=== PATIENT | female | born 1945 | race Asian ===

== ENCOUNTER 2019-11-22 07:43 | Emergency (ER) | payer BC ==
[~2019-11-22] VITALS: Ht 149.9 cm; Wt 60.9 kg
[~2019-11-22 07:43] MED LIST: ATOR20TA PO; CARV3.12 PO; CHOL100013 PO; CYAN-25 PO; DIPH25CA58 PO; LOSA50TA86 PO; METF10007 PO; OMEG-33 PO; SPIR25TA5 PO; WARF2.5T83 PO
--- NOTE | 2019-11-22 07:57 | PHYS DOC ---
Past History Past Medical History: A-Fib, Diabetes, Hypertension Past Surgical History: Other Alcohol Use: None Drug Use: None General Adult EDM: Chief Complaint: WEAKNESS/GENERALIZED HPI: HPI: 73-year-old female presents with decreased lower extremity coordination. The patient was feeling fine yesterday. 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 She is able to move all of her extremities, she just does not feel like she can make her legs move the way she wants to. She can bear weight. She can shuffle, but does not believe she can walk. This is new for her. The patient is on Coumadin for atrial fibrillation. Her most recent INR showed her to be slightly subtherapeutic at 1.9. She is having no difficulty speaking or understanding words. She does not have any drift. She denies fever or chills. Review of Systems: Review of Systems: Constitutional: Denies fever or chills Eyes: Denies change in visual acuity HENT: Denies nasal congestion or sore throat Respiratory: Denies cough or shortness of breath Cardiovascular: Denies chest pain or edema GI: Denies abdominal pain, nausea, vomiting, bloody stools or diarrhea : Denies dysuria Musculoskeletal: Denies back pain or joint pain Integument: Denies rash Neurologic: Denies headache or sensory changes. Decreased coordination lower extremities Endocrine: Denies polyuria or polydipsia Lymphatic: Denies swollen glands Psychiatric: Denies depression or anxiety Heart Score: Risk Factors: Risk Factors: DM, Current or recent (<one month) smoker, HTN, HLP, family history of CAD, obesity. Risk Scores: Score 0 - 3: 2.5% MACE over next 6 weeks - Discharge Home Score 4 - 6: 20.3% MACE over next 6 weeks - Admit for Clinical Observation Score 7 - 10: 72.7% MACE over next 6 weeks - Early Invasive Strategies Allergies: Allergies: Allergies Coded Allergies Type Severity Reaction Last Updated Verified DIAMOND Inhibitors Allergy Unknown 01/07/15 Yes epinephrine Allergy Unknown 01/07/15 Yes Physical Exam: PE: Constitutional: Well developed, well nourished, no acute distress, non-toxic appearance. [] HENT: Normocephalic, atraumatic, bilateral external ears normal, oropharynx moist, no oral exudates, nose normal. [] Eyes: PERRLA, EOMI, conjunctiva normal, no discharge. [] Neck: Normal range of motion, no tenderness, supple, no stridor. [] Cardiovascular: Heart rate regular rhythm, no murmur [] Lungs & Thorax: Bilateral breath sounds clear to auscultation [] Abdomen: Bowel sounds normal, soft, no tenderness, no masses, no pulsatile mas ses. [] Skin: Warm, dry, no erythema, no rash. [] Back: No tenderness, no CVA tenderness. [] Extremities: No tenderness, no cyanosis, no clubbing, ROM intact, no edema. [] Neurologic: Alert and oriented X 3, normal motor function, normal sensory function, no focal deficits noted. [] Psychologic: Affect normal, judgement normal, mood anxious. [] EKG: EKG: Irregular rhythm, no P waves, rate 98, no ST elevations or depressions. Atrial fibrillation. [] Radiology/Procedures: Radiology/Procedures: [] Impressions: CT HEAD WO CONTRAST History: Decreased coordination of lower extremities. Comparison: None. Technique: Noncontrast CT imaging was performed of the head. Exposure: One or more of the following individualized dose reduction techniques were utilized for this examination: 1. Automated exposure control 2. Adjustment of the mA and/or kV according to patient size 3. Use of iterative reconstruction technique. Findings: No intracranial hemorrhage. No mass effect. No hydrocephalus. Mild brain parenchymal volume loss. Mild foci of decreased attenuation within the hemispheric white matter, most often due to chronic microvascular ischemia. Imaged orbits are unremarkable. Imaged paranasal sinuses and mastoid air cells are clear. No acute calvarial fracture. Impression: 1. No acute intracranial abnormality. Electronically signed by: Pete Esapna DO (11/22/2019 8:42 AM) [id number] DICTATED AND SIGNED BY: PETE ESPANA DO DATE: 11/22/19 0842 CC: ALEC DICKSON DO; TIKA SMITH MD ~ Course & Med Decision Making: Course & Med Decision Making Pertinent Labs and Imaging studies reviewed. (See chart for details) The patient's head CT is negative. Her labs are unremarkable except for a subtherapeutic INR of 1.7. The patient will follow up on this with her physician. Her official NIH scale is 2. For slight drift in her left leg and decreased coordination with this leg. The patient tells me she is feeling better overall. She had heaviness and decreased movement of her entire left side last night. The left arm is significantly improved. She does not want to be admitted to the hospital. She will follow-up with the neurologist, Dr. Olivares. She will call him today. She is stable for discharge at this time. [] Dragon Disclaimer: Dragon Disclaimer: This electronic medical record was generated, in whole or in part, using a voice recognition dictation system. NIH Stroke Scale: NIH Stroke Scale Response (Comments) Value Level of Consciousness: 0 Alert/Responsive 0 LOC Questions: 0 Answers both correctly 0 LOC Commands: 0 Performs both tasks 0 Best Gaze: 0 Normal 0 Facial Palsy: 0 Normal, symmetrical 0 Motor - Left Arm 0 No drift 0 Motor - Right Arm 0 No drift 0 Motor - Left Leg 1 Drift but can hold 1 Motor: Right Leg 0 No drift 0 Limb Ataxia: 1 One limb 1 Best Language: 0 Normal 0 Dysathria: 0 Normal 0 Extinction and Inattention: 0 Normal 0 Total 2 Departure Departure: Impression: Primary Impression: Weakness of left lower extremity Additional Impression: TIA (transient ischemic attack) Disposition: 01 HOME, SELF-CARE Condition: STABLE Referrals: MEL RIVERA MD (PCP) Patient Instructions: Transient Ischemic Attack, [id number] ALEC DICKSON DO Nov 22, 2019 07:56
[2019-11-22 08:34] LABS: CALCIUM 8.7 mg/dL (8.5-10.1); CREATININE 0.9 mg/dL (0.6-1.0); GFR 61.2; POTASSIUM 4.6 mmol/L (3.5-5.1)
[2019-11-22 08:37] LABS: BASO # 0.1 x10^3/uL (0.0-0.2); BASO % 1 % (0-3); EOS # 0.1 x10^3/uL (0.0-0.7); EOS % 2 % (0-3); HEMATOCRIT 42.3 % (36.0-47.0); HEMOGLOBIN 13.9 g/dL (12.0-15.5); LYMPH # 1.4 x10^3/uL (1.0-4.8); LYMPH % 21 % (24-48); MEAN CORPUSCULAR HEMOGLOBIN 30 pg (25-35); MEAN CORPUSCULAR HGB CONC 33 g/dL (31-37); MEAN CORPUSCULAR VOLUME 90 fL (79-100); MONO # 0.5 x10^3/uL (0.0-1.1); MONO % 7 % (0-9); NEUT # 4.4 x10^3uL (1.8-7.7); NEUT % 69 % (31-73); PLATELET COUNT 270 x10^3/uL (140-400); RED CELL DISTRIBUTION WIDTH 15.6 % (11.5-14.5); WHITE BLOOD COUNT 6.3 x10^3/uL (4.0-11.0)
[2019-11-22 08:40] LABS: ALBUMIN 3.4 g/dL (3.4-5.0); ALBUMIN/GLOBULIN RATIO 0.8 (1.0-1.7); MAGNESIUM 1.9 mg/dL (1.8-2.4); TOTAL BILIRUBIN 0.6 mg/dL (0.2-1.0); TOTAL PROTEIN 7.6 g/dL (6.4-8.2)
--- NOTE | 2019-11-22 08:45 | RAD ---
CT HEAD WO CONTRAST History: Decreased coordination of lower extremities. Comparison: None. Technique: Noncontrast CT imaging was performed of the head. Exposure: One or more of the following individualized dose reduction techniques were utilized for this examination: 1. Automated exposure control 2. Adjustment of the mA and/or kV according to patient size 3. Use of iterative reconstruction technique. Findings: No intracranial hemorrhage. No mass effect. No hydrocephalus. Mild brain parenchymal volume loss. Mild foci of decreased attenuation within the hemispheric white matter, most often due to chronic microvascular ischemia. Imaged orbits are unremarkable. Imaged paranasal sinuses and mastoid air cells are clear. No acute calvarial fracture. Impression: 1. No acute intracranial abnormality. Electronically signed by: Pete Espana DO (11/22/2019 8:42 AM) [id number]
[2019-11-22 09:44] LABS: CLARITY,URINE CLEAR; COLOR,URINE YELLOW
[2019-11-22 09:45] LABS: AMORPHOUS SEDIMENT,UR PRESENT /HPF; BACTERIA,URINE 0 /HPF (0-FEW); BILIRUBIN,URINE NEG (NEG); GLUCOSE,URINE NEG (NEG); NITRITE,URINE NEG (NEG); RBC,URINE 0 /HPF (0-2); SQUAMOUS EPITHELIAL CELL,UR FEW /LPF; UROBILINOGEN,URINE 0.2 mg/dL (0.2 mg/dL); WBC,URINE OCC /HPF (0-4)
[2019-11-22 09:53] VITALS: BP 136/80
--- NOTE | 2019-11-22 18:05 | EKG ---
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
== END 2019-11-22 10:00 | disposition home or self-care (01) ==
LOC: ER 07:43
DX: G45.9 Transient cerebral ischemic attack, unspecified (principal); R53.1 Weakness; E11.9 Type 2 diabetes mellitus without complications; I10 Essential (primary) hypertension; I48.91 Unspecified atrial fibrillation; Z79.01 Long term (current) use of anticoagulants; Z88.8 Allergy status to other drugs, medicaments and biological substances
CPT/HCPCS: 36415; 70450; 80053; 81001; 83735; 84484; 85025; 85610; 85730; 87086; 93005; 99285

== ENCOUNTER 2021-02-28 06:32 | Inpatient (IN) | payer MEDICARE, BC ==
[~2021-02-28] VITALS: Ht 149.9 cm; Wt 60.6 kg
[~2021-02-28 06:32] MED LIST changes: +WARF2.5T2 PO; -WARF2.5T83 PO
--- NOTE | 2021-02-28 06:55 | PHYS DOC ---
Past History Past Medical History: A-Fib, Diabetes, Hypertension Past Surgical History: Other Additional Past Surgical Histo: thyroidectomy Alcohol Use: None Drug Use: None General Adult EDM: Chief Complaint: chest pain HPI: HPI: 75-year-old female presents with chest pain. Patient woke up around 5 AM with a feeling of dread and a central chest burning that she rates an 8 out of 10 at this time. 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 She was initially concerned that she was having another stroke as she had 1 about a year ago. She denies having any focal deficits. The chest pain increased so she came to the emergency room. She had a cough last night it took Robitussin with codeine. She was able to sleep well overnight. She has been vaccinated for COVID-19. She has been having difficulty regulating her INR level lately. She is on Coumadin because of her A. fib. She also tells me she has had some issues regulating her blood pressure. She denies fever or chills. Review of Systems: Review of Systems: Constitutional: Denies fever or chills Eyes: Denies change in visual acuity HENT: Denies nasal congestion or sore throat Respiratory: Cough without shortness of breath Cardiovascular: Chest pain GI: Denies abdominal pain, nausea, vomiting, bloody stools or diarrhea : Denies dysuria Musculoskeletal: Denies back pain or joint pain Integument: Bruising Neurologic: Denies headache, focal weakness or sensory changes Endocrine: Denies polyuria or polydipsia Lymphatic: Denies swollen glands Psychiatric: Denies depression or anxiety Allergies: Allergies: Allergies Coded Allergies Type Severity Reaction Last Updated Verified DIAMOND Inhibitors Allergy Unknown 11/22/19 Yes epinephrine Allergy Unknown 11/22/19 Yes zolpidem Allergy Unknown 11/22/19 Yes Uncoded Allergies Type Severity Reaction Last Updated Verified cardiac stemulants Allergy Unknown 11/22/19 Physical Exam: PE: Constitutional: Well developed, well nourished, no acute distress, non-toxic appearance. [] HENT: Normocephalic, atraumatic, bilateral external ears normal, oropharynx moist, no oral exudates, nose normal. [] Eyes: PERRLA, EOMI, conjunctiva normal, no discharge. [] Neck: Normal range of motion, no tenderness, supple, no stridor. [] Cardiovascular: Heart rate 109, irregular rhythm, no murmur [] Lungs & Thorax: Bilateral breath sounds clear to auscultation [] Abdomen: Bowel sounds normal, soft, no tenderness, no masses, no pulsatile masses. [] Skin: Various areas of ecchymosis [] Back: No tenderness, no CVA tenderness. [] Extremities: No tenderness, no cyanosis, no clubbing, ROM intact, no edema. [] Neurologic: Alert and oriented X 3, normal motor function, normal sensory function, no focal deficits noted. [] Psychologic: Affect normal, judgement normal, mood normal. [] EKG: EKG: Irregular rhythm, rate 109, normal axis, no ST elevation or depression. [] Radiology/Procedures: Radiology/Procedures: [] Impressions: XR CHEST 1V INDICATION: cp COMPARISON STUDY: 09/21/2011. FINDINGS: Lungs: Normal lung volume. No pulmonary mass or consolidation. The tracheobronchial tree and hilar structures are normal. Pleura: No pleural effusion or pneumothorax. Heart and Mediastinum: Cardiomegaly. Atherosclerosis of the thoracic aorta. IMPRESSION: No consolidation. Electronically signed by: Nicky Stout MD (02/28/2021 6:54 AM) [facility] DICTATED AND SIGNED BY: NICKY STOUT MD DATE: 02/28/21 0653 CC: ALEC DICKSON DO; TIKA SMITH MD ~MTH0 0 Heart Score: C/O Chest Pain: Yes HEART Score for Chest Pain: HEART Score for Chest Pain Response (Comments) Value History Moderately Suspicious 1 ECG Nonspecific Repolarizatio 1 Age > 65 2 Risk Factors 1 or 2 Risk Factors 1 Troponin < Normal Limit 0 Total 5 Risk Factors: Risk Factors: DM, Current or recent (<one month) smoker, HTN, HLP, family history of CAD, obesity. Risk Scores: Score 0 - 3: 2.5% MACE over next 6 weeks - Discharge Home Score 4 - 6: 20.3% MACE over next 6 weeks - Admit for Clinical Observation Score 7 - 10: 72.7% MACE over next 6 weeks - Early Invasive Strategies Course & Med Decision Making: Course & Med Decision Making Pertinent Labs and Imaging studies reviewed. (See chart for details) The patient's EKG is unremarkable. Her chest x-ray is negative for acute findings. Her troponin is negative. Her other labs are essentially noncontributory. Her INR is 2.4. Given her age and risk factors, I believe it would be prudent to admit her to the hospital. The patient is in agreement. I spoke with Dr. Dobson and he has accepted the patient for admission. [] Dragon Disclaimer: Dragon Disclaimer: This electronic medical record was generated, in whole or in part, using a voice recognition dictation system. Departure Departure: Impression: Primary Impression: Chest pain Qualified Codes: R07.9 - Chest pain, unspecified Disposition: 09 ADMITTED INPATIENT Admitting Physician: Holden Dobson Condition: STABLE Referrals: TIKA SMITH MD (PCP) ALEC DICKSON DO Feb 28, 2021 06:54
--- NOTE | 2021-02-28 06:57 | RAD ---
XR CHEST 1V INDICATION: cp COMPARISON STUDY: 09/21/2011. FINDINGS: Lungs: Normal lung volume. No pulmonary mass or consolidation. The tracheobronchial tree and hilar st ructures are normal. Pleura: No pleural effusion or pneumothorax. Heart and Mediastinum: Cardiomegaly. Atherosclerosis of the thoracic aorta. IMPRESSION: No consolidation. Electronically signed by: Alli Stout MD (02/28/2021 6:54 AM) [facility]ITALJose Daniel
[2021-02-28] MEDS ORDERED: ASPIRIN CHEWABLE 81 MG TABLET. PO ONE (07:15)
--- NOTE | 2021-02-28 07:26 | EKG ---
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
[2021-02-28 07:33] LABS: BASO % 1 % (0-3); EOS # 0.1 x10^3/uL (0.0-0.7); EOS % 1 % (0-3); HEMATOCRIT 38.7 % (36.0-47.0); HEMOGLOBIN 12.8 g/dL (12.0-15.5); LYMPH # 1.1 x10^3/uL (1.0-4.8); LYMPH % 13 % (24-48); MEAN CORPUSCULAR HEMOGLOBIN 31 pg (25-35); MEAN CORPUSCULAR HGB CONC 33 g/dL (31-37); MEAN CORPUSCULAR VOLUME 93 fL (79-100); MONO # 0.3 x10^3/uL (0.0-1.1); MONO % 4 % (0-9); NEUT # 7.1 x10^3uL (1.8-7.7); NEUT % 83 % (31-73); PLATELET COUNT 242 x10^3/uL (140-400); RED BLOOD COUNT 4.18 x10^6/uL (3.50-5.40); RED CELL DISTRIBUTION WIDTH 15.1 % (11.5-14.5); WHITE BLOOD COUNT 8.6 x10^3/uL (4.0-11.0)
[2021-02-28 07:40] LABS: CALCIUM 8.4 mg/dL (8.5-10.1); CREATININE 0.8 mg/dL (0.6-1.0); GFR 69.7; POTASSIUM 4.2 mmol/L (3.5-5.1)
[2021-02-28 07:45] LABS: ALBUMIN 3.6 g/dL (3.4-5.0); ALBUMIN/GLOBULIN RATIO 0.9 (1.0-1.7); TOTAL BILIRUBIN 0.7 mg/dL (0.2-1.0); TOTAL PROTEIN 7.4 g/dL (6.4-8.2)
[2021-02-28] MEDS ORDERED: ONDANSETRON PF 4 MG/2 ML VIAL. IVP ONE (07:45)
[2021-02-28] MEDS ORDERED: ACETAMINOPHEN 325 MG TABLET PO ONE ×2 (07:45→07:49)
[2021-02-28] MEDS ORDERED: ONDANSETRON PF 4 MG/2 ML VIAL. ONE (07:49)
--- NOTE | 2021-02-28 08:26 | EKG ---
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
[2021-02-28] MEDS ORDERED: ONDANSETRON PF 4 MG/2 ML VIAL. IVP PRN (08:45)
[2021-02-28 09:43] VITALS: BP 124/72
--- NOTE | 2021-02-28 09:59 | NUR ---
The patient, SARAH WADSWORTH, 75 y/o, F admitted by SALEEM FIELDS MD, was given written information regarding hospital policies, unit procedures and contact persons. Valuables were checked and VS taken please see chart.
[2021-02-28] MEDS ORDERED: WARF1TAB69 PO (10:22)
[2021-02-28] MEDS ORDERED: MULT-697 PO (10:22)
[2021-02-28] MEDS ORDERED: ASPI-630 PO (10:22)
[2021-02-28] MEDS ORDERED: LEVO88TA2 PO (10:22)
--- NOTE | 2021-02-28 15:05 | NUR ---
Discharge Note: SARAH WADSWORTH [address] Discharge instructions and discharge home medications reviewed with Patient and a copy given. All questions have been answered and understanding verbalized. The following instructions and handouts were given: Discontinued lines and drains: Peripheral IV intact. Patient discharged to Home or Self Care with Self via Wheelchair
--- NOTE | 2021-02-28 16:11 | SSS ---
ADMIT DATE: 02/28/2021 HISTORY OF PRESENT ILLNESS: The patient is a 75-year-old Salvad[place] Mac[place] female patient who came to the Emergency Room complaining of chest pain. She apparently woke up around 5:00 a.m. with a feeling of dread and the central chest burning that she rates as 8/10 in severity. 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 She was initially concerned that she was having another stroke. She had one about a year ago. She denies having any focal deficit. The chest pain increased, so she came to the Emergency Room. She had the cough last night for which she took Robitussin with Codeine. She was able to sleep well overnight. She has been vaccinated for COVID-19. She has been having difficulty regulating her INR level lately. She is on Coumadin because of her AFib. She also tells me that she has issue with blood pressure. She stated that she had actually sprayed insecticides in her uma garden and has since had this feeling dizzy, nauseous and vomited. She was extensively investigated in the Emergency Room, and her first set of cardiac enzyme was less than 0.017. She was admitted to do more cardiac enzyme and to consult the quality control lab tech; however, the patient is extremely anxious and once she has the second enzyme become negative, she insisted that she wants to go home. She said she has 3 cardiologists already and does not want to have another fourth one. She follows with Dr. Thompson and she will make an appointment to see him. PAST MEDICAL HISTORY: Significant for atrial fibrillation, hypertension, type 2 diabetes mellitus, hyperlipidemia, hypothyroidism. 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 PAST SURGICAL HISTORY: Significant for thyroidectomy, hemorrhoidectomy, parathyroidectomy, total abdominal hysterectomy, bilateral salpingo-oophorectomy. ALLERGIES: SHE IS ALLERGIC TO DIAMOND INHIBITORS, CARDIAC STIMULANTS, EPINEPHRINE AND AMBIEN. MEDICATIONS: She is currently on warfarin 2.5 mg, she takes 1 tablet daily; warfarin 1 mg, take 1-1/2 tablet daily; atorvastatin calcium, she takes 40 mg daily; omega 3 fatty acids, she takes 3 capsules once a day; carvedilol 3.125 mg, she takes 25 mg twice a day; losartan potassium 50 mg twice a day; aspirin 81 mg once a day; metformin 1000 mg twice a day; levothyroxine 88 mcg once a day; multivitamin with folic acid once a day. FAMILY HISTORY: She has 3 sisters, 1 brother, all have diabetes and hypertension. Her father in his 70s because of hypertension and CVA. Mother at the age of 95 because of myocardial infarction. SOCIAL HISTORY: She is and lives with her . She has a son and daughter. She never smoked. Drinks alcohol occasionally. 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 REVIEW OF SYSTEMS: As per history of present illness. PHYSICAL EXAMINATION: GENERAL: When I examined her, she looked well and was clearly in no apparent respiratory distress. No pallor, jaundice, cyanosis or thyromegaly. No jugular venous distention. No limb edema. VITAL SIGNS: Her heart rate was 91, blood pressure was 124/72, temperature was 98.6, respiratory rate 20, and oxygen saturation was 97%. HEAD, EYES, EARS, NOSE, AND THROAT: Normocephalic, atraumatic. NECK: Supple. HEART: Showed normal first and second heart sounds. No gallop, rub or murmur. CHEST: Clear to auscultation. No crepitation or rhonchi. ABDOMEN: Slightly distended, soft, nontender. NEUROLOGIC: She was grossly intact. LABORATORY DATA: Her lab work showed a serum sodium 145, potassium 4.2, chloride 108, bicarbonate 26, anion gap of 11, BUN 31, creatinine 0.8. Estimated GFR was 69 mL per minute. Her glucose 150, calcium was 8.4. Total bilirubin, AST, ALT, alkaline phosphatase were normal. Her first troponin was 0.017. Total protein was 7.4, albumin was 3.6. Her prothrombin time was 24, INR of 2.4, APTT was 33. White cell count was 8600, hemoglobin 12.8, hematocrit 38, MCV 93 and platelet count 242,000. Her platelets are 242. The patient has 2 sets of cardiac enzymes that are negative. The patient insisted that she wanted to be seen by her quality control lab tech and wanted to go home as she remained stable, chest pain free and 2 cardiac enzymes were negative. The patient was discharged home to continue on aspirin 81 mg once a day, atorvastatin calcium 20 mg at bedtime, carvedilol 25 mg twice a day, levothyroxine sodium 88 mcg once a day, losartan potassium 50 mg twice a day, metformin 1000 mg once a day, multivitamin 1 tablet once a day, omega 3 fatty acid 1 capsule once a day and warfarin as per her regimen. FINAL DISCHARGE DIAGNOSES: Chest pain, myocardial infarction ruled out. She has obviously multiple risk factors for coronary artery disease; however, she has vomited multiple times and high possibility that this is all because of gastroesophageal reflux disease. BRUNO DR: Ingrid TID: [id number]
== END 2021-02-28 15:06 | disposition home or self-care (01) | DRG 392 ==
LOC: ER 06:32 → 1 SOUTH 09:07
PROVIDERS: ADMIT Internal Medicine; ATTEND Internal Medicine
DX: K21.9 Gastro-esophageal reflux disease without esophagitis (principal); E11.9 Type 2 diabetes mellitus without complications; E78.5 Hyperlipidemia, unspecified; E89.0 Postprocedural hypothyroidism; I10 Essential (primary) hypertension; I48.91 Unspecified atrial fibrillation; Z79.01 Long term (current) use of anticoagulants; Z82.3 Family history of stroke; Z82.49 Family history of ischemic heart disease and other diseases of the circulatory system; Z83.3 Family history of diabetes mellitus; Z86.73 Personal history of transient ischemic attack (TIA), and cerebral infarction without residual deficits; Z90.710 Acquired absence of both cervix and uterus; M19.90 Unspecified osteoarthritis, unspecified site; Z88.8 Allergy status to other drugs, medicaments and biological substances
CPT/HCPCS: 36415; 71045; 80053; 82947; 84484; 85025; 85610; 85730; 93005; 96374; J2405; 99285-25

== ENCOUNTER 2021-07-02 21:41 | Emergency (ER) | payer MEDICARE, BC ==
[~2021-07-02] VITALS: Ht 152.4 cm; Wt 68.2 kg
[~2021-07-02 21:41] MED LIST changes: +ASPI-630 PO; +LEVO88TA2 PO; +MULT-697 PO; +WARF1TAB69 PO
[2021-07-02] MEDS ORDERED: SUCCINYLCHOLINE 200 MG/10 ML VIAL. ONE ×2 (21:53→23:00)
[2021-07-02 22:41] LABS: BASO # 0.1 x10^3/uL (0.0-0.2); BASO % 1 % (0-3); EOS % 0 % (0-3); HEMATOCRIT 41.9 % (36.0-47.0); HEMOGLOBIN 13.3 g/dL (12.0-15.5); LYMPH # 3.2 x10^3/uL (1.0-4.8); LYMPH % 27 % (24-48); MEAN CORPUSCULAR HEMOGLOBIN 30 pg (25-35); MEAN CORPUSCULAR HGB CONC 32 g/dL (31-37); MEAN CORPUSCULAR VOLUME 95 fL (79-100); MONO # 0.4 x10^3/uL (0.0-1.1); MONO % 3 % (0-9); NEUT # 8.4 x10^3uL (1.8-7.7); NEUT % 69 % (31-73); PLATELET COUNT 262 x10^3/uL (140-400); RED BLOOD COUNT 4.43 x10^6/uL (3.50-5.40); RED CELL DISTRIBUTION WIDTH 14.3 % (11.5-14.5); WHITE BLOOD COUNT 12.2 x10^3/uL (4.0-11.0)
[2021-07-02 22:48] LABS: CALCIUM 8.1 mg/dL (8.5-10.1); CREATININE 1.1 mg/dL (0.6-1.0); GFR 48.3; POTASSIUM 4.3 mmol/L (3.5-5.1)
[2021-07-02 22:54] LABS: ALBUMIN 3.6 g/dL (3.4-5.0); ALBUMIN/GLOBULIN RATIO 0.9 (1.0-1.7); TOTAL BILIRUBIN 0.8 mg/dL (0.2-1.0); TOTAL PROTEIN 7.6 g/dL (6.4-8.2)
[2021-07-02] MEDS ORDERED: IV NORMAL SALINE 250 ML BAG ONE (23:00)
[2021-07-02] MEDS ORDERED: SODIUM BICARB ADULT 8.4% 50 MEQ/50 ML DISP.SYRIN. ONE (23:00)
[2021-07-02] MEDS ORDERED: EPINEPHrine SYRINGE 1 MG/10 ML SYRINGE ONE (23:00)
[2021-07-02] MEDS ORDERED: NOREPINEPHRINE BITARTRATE 4 MG/4 ML VIAL. IV ONE (23:00)
[2021-07-02] MEDS ORDERED: MIDAZOLAM HCL PF 5 MG/5 ML VIAL. ONE (23:00)
[2021-07-02] MEDS ORDERED: LIDOCAINE 2% SYRINGE 100 MG/5 ML DISP.SYRIN. ONE (23:00)
[2021-07-02] MEDS ORDERED: IV DEXTROSE 5% 250 ML BAG. IV ONE (23:00)
--- NOTE | 2021-07-02 23:37 | PHYS DOC ---
General Adult EDM: Chief Complaint: RESP ARREST HPI: HPI: "..She was in the bed .. and did not respond.. 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 Patient underwent CPR by paramedics when she became apneic, loss of pulse and unresponsive. Patient does have past medical history of A. fib and currently on Coumadin. Has had history of hypertension in the past.. 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 Patient did receive a Covid vaccination booster. No recent travel. No history of trauma. No specific ill contacts. Reportedly pt. was running a fever this afternoon. Patient in route did receive CPR compressions and received breahts by bag mask with a oral airway. Patient arrived and appeared to be exhibiting decorticate posturing. GCS= 5. Pt intubated with 7.5 ET to [protect airway and to send pt. to CT . OG induced to decompress stomach. The pt. did require fluits and levaphed to maintain blood pressure and MAP in normal range.. Was noted on intubation that patient had some aspiration of gastric contents. advised pt, had a history of Afib and was on Coumadin. Review of Systems: Review of Systems: Unable to completed due to Mental Status Family History: Family History: Not currently available Current Medications: Current Meds: Current Medications Medications (Trade) Dose Ordered Sig/Aisha Start Time Stop Time Status Last Admin Dose Admin Acetaminophen (Tylenol Supp) 1,300 mg 1X ONCE 07/02/21 23:45 07/02/21 23:46 Phytonadione (Vitamin K) 5 mg 1X ONCE 07/02/21 23:45 07/02/21 23:46 Succinylcholine Chloride (Anectine) 200 mg STK-MED ONCE 07/02/21 21:53 07/02/21 21:53 DC Vancomycin HCl 1 gm/Sodium Chloride 250 ml @ 250 mls/hr 1X ONCE 07/02/21 23:45 07/03/21 00:44 Allergies: Allergies: Allergies Coded Allergies Type Severity Reaction Last Updated Verified No Known Drug Allergies 07/02/21 No Physical Exam: PE: Constitutional: in acute distress, morbid in appearance. [] HENT: Normocephalic, atraumatic, bilateral external ears normal, oropharynx moist, no oral exudates, nose normal. No gag. Oral airway in place. Eyes: conjunctiva normal, no discharge. Eyes midline fixed and pupils dilated. Neck: No step-off palpated, no stridor. No bruits appreciated. Trachea midline. Cardiovascular:Tachycaridia Heart rate, irregular rhythm, no murmur [] Bed side monitor shows what appeared to be Afib. Lungs & Thorax: Bilateral breath sounds equal apex with rhonchi on right, basilar crackles on Lt base with auscultation [] Abdomen: Bowel sounds normal, soft, no tenderness, no masses, no pulsatile masses. [] Skin: Warm, dry, no erythema, no rash. Couple areas of bruising on right chest wall and abdomen. Back: No step-off noted, when patient was rolled to place pacer pads, Extremities: No cyanosis, no clubbing, no cording appreciated, no edema. [] Neurologic: Abnormal flexion motor movements, nonresponsive to noxious stimuli Psychologic: Unresponsive Current Patient Data: Labs: Laboratory Tests Test 07/02/21 21:45 07/02/21 21:55 White Blood Count 12.2 x10^3/uL (4.0-11.0) H Red Blood Count 4.43 x10^6/uL (3.50-5.40) Hemoglobin 13.3 g/dL (12.0-15.5) Hematocrit 41.9 % (36.0-47.0) Mean Corpuscular Volume 95 fL (79-100) Mean Corpuscular Hemoglobin 30 pg (25-35) Mean Corpuscular Hemoglobin Concent 32 g/dL (31-37) Red Cell Distribution Width 14.3 % (11.5-14.5) Platelet Count 262 x10^3/uL (140-400) Neutrophils (%) (Auto) 69 % (31-73) Lymphocytes (%) (Auto) 27 % (24-48) Monocytes (%) (Auto) 3 % (0-9) Eosinophils (%) (Auto) 0 % (0-3) Basophils (%) (Auto) 1 % (0-3) Neutrophils # (Auto) 8.4 x10^3uL (1.8-7.7) H Lymphocytes # (Auto) 3.2 x10^3/uL (1.0-4.8) Monocytes # (Auto) 0.4 x10^3/uL (0.0-1.1) Eosinophils # (Auto) 0.0 x10^3/uL (0.0-0.7) Basophils # (Auto) 0.1 x10^3/uL (0.0-0.2) Sodium Level 141 mmol/L (136-145) Potassium Level 4.3 mmol/L (3.5-5.1) Chloride Level 102 mmol/L (98-107) Carbon Dioxide Level 23 mmol/L (21-32) Anion Gap 16 (6-14) H Blood Urea Nitrogen 21 mg/dL (7-20) H Creatinine 1.1 mg/dL (0.6-1.0) H Estimated GFR (Cockcroft-Gault) 48.3 BUN/Creatinine Ratio 19 (6-20) Glucose Level 243 mg/dL (70-99) H Lactic Acid Level 6.0 mmol/L (0.4-2.0) *H Calcium Level 8.1 mg/dL (8.5-10.1) L Total Bilirubin 0.8 mg/dL (0.2-1.0) Aspartate Amino Transferase (AST) 79 U/L (15-37) H Alanine Aminotransferase (ALT) 82 U/L (14-59) H Alkaline Phosphatase 142 U/L (46-116) H Troponin I High Sensitivity 27 ng/L (4-50) Total Protein 7.6 g/dL (6.4-8.2) Albumin 3.6 g/dL (3.4-5.0) Albumin/Globulin Ratio 0.9 (1.0-1.7) L Prothrombin Time 29.6 SEC (9.4-11.4) H Prothrombin Time INR 2.9 (0.9-1.1) H Activated Partial Thromboplast Time 39 SEC (23-33) H EKG: EKG: My interpretation EKG shows a A. fib with a ventricular response of 98 bpm. Occasional premature complexes. Prolonged QT interval at 390 ms with QTC at 500 ms time of this EKG is 2347 [] Radiology/Procedures: Radiology/Procedures: [address], [place] [address] IMAGING REPORT Signed PATIENT: SARAH WADSWORTHACCOUNT: [id number] : 1945 LOCATION: ER AGE: 75 SEX: F EXAM STATUS: REG ER ORD. PHYSICIAN: MARC SANTOS APRN REASON: post intubation, CARDIAC ARREST PROCEDURE: CHEST AP ONLY XR CHEST 1V Clinical History: Reason: post intubation, CARDIAC ARREST / Spl. Instructions: / History: Technique: AP view of the chest was obtained at 07/02/2021 10:52 PM. Comparison: None. Findings: The heart is mild to moderately enlarged. There is opacity in the left lung base. There is an endotracheal tube with its tip directed towards right main bronchus. The pulmonary vessels appear normal. Impression: 1. The endotracheal tube has its tip directed towards right main bronchus and should be withdrawn approximately 2 cm. 2. Large left effusion with adjacent infiltrate. End impression These results were called to the ER physician and verified by read back at 11:34 PM. Electronically signed by: Martin Wyatt III, MD (07/02/2021 11:42 PM) [facility] DICTATED AND SIGNED BY: MARTIN WYATT III, MD DATE: 07/02/212339 CC: MARC SANTOS APRN; CRISTINA HOBBS MD; TIKA SMITH MD ~MTH0 0 [][place] [address] IMAGING REPORT Signed PATIENT: SARAH WADSWORTHACCOUNT: [id number] : 1945 LOCATION: ER AGE: 75 SEX: F EXAM STATUS: REG ER ORD. PHYSICIAN: MARC SANTOS APRN REASON: change in mental status, CARDIAC ARREST PROCEDURE: CT HEAD AND CERVICAL SPINE WO CT Head W/O Contrast: History: Reason: change in mental status, CARDIAC ARREST / Spl. Instructions: / History: Comparison: none Axial images were obtained without contrast. There is a large left temporal intraparenchymal hemorrhage which continues up into the basal ganglia the patella left frontal lobe and teague radiata that measures 6.4 x 5.2 cm and has surrounding vasogenic edema and causes 1.4 cm right midline shift. There is flattening of the left lateral ventricle and there is hemorrhage in the fourth ventricle and there may be intraparenchymal hemorrhage within the cerebellar lobe anteriorly on the right and there is a small acute subdural hemorrhage on the left that measures up to 6 mm in thickness. There is complete effacement of the perimesencephalic cistern. The robert and white matter appears normal and symmetrical for the patients age. There is no hydrocephalus. Impression: 1. Large acute intraparenchymal hemorrhage on the left with surrounding it vasogenic edema and complete effacement of the left lateral ventricle and the perimesencephalic cistern and 1 4 cm left to right midline shift. 2. Moderate left-sided acute subdural hematoma. End impression CT C-Spine without contrast: Clinical History: Reason: change in mental status, CARDIAC ARREST / Spl. Instructions: / History: Technique: Axial helical images of the cervical spine were obtained without contrast, axial coronal and sagittal reconstruction was performed. Findings: There is no loss of vertebral body stature. There is no prevertebral soft tissue swelling. The vertebral bodies are well aligned. The C1-C2 relationship is normal. The visualized osseous structures appear normal. There is straightening of the normal cervical lordosis which can be positional or can be secondary to muscle spasm. Evaluation of the central canal is limited without contrast. There is a hematoma above the left clavicle. There is a small left pleural effusion and left apical infiltrate. The right jugular vein is distended. Impression: 1. No CT evidence of acute fracture or malalignment of the C-spine. Clinical correlation suggested. 2. Hematoma in the base of the left neck. 3. Left pleural effusion and left apical infiltrate which could be atypical pneumonia or pulmonary contusion. 4. Distention of the right jugular vein. End impression PQRS Compliance Statement: One or more of the following individualized dose reduction techniques were utilized for this examination: 1. Automated exposure control 2. Adjustment of the mA and/or kV according to patient size 3. Use of iterative reconstruction technique These results were called to Dr. soto physician and verified by read back at 11:34 PM. Electronically signed by: Martin Wyatt III, MD (07/02/2021 11:40 PM) [facility] DICTATED AND SIGNED BY: MARTIN WYATT III, MD DATE: 07/02/21 7925 CC: MARC SANTOS APRN; CRISTINA HOBBS MD; TIKA SMITH MD ~MTH0 0 Heart Score: C/O Chest Pain: N/A HEART Score for Chest Pain: HEART Score for Chest Pain Response (Comments) Value History Moderately Suspicious 1 ECG Nonspecific Repolarizatio 1 Age > 65 2 Risk Factors 1 or 2 Risk Factors 1 Troponin < Normal Limit 0 Total 5 Risk Factors: Risk Factors: DM, Current or recent (<one month) smoker, HTN, HLP, family history of CAD, obesity. Risk Scores: Score 0 - 3: 2.5% MACE over next 6 weeks - Discharge Home Score 4 - 6: 20.3% MACE over next 6 weeks - Admit for Clinical Observation Score 7 - 10: 72.7% MACE over next 6 weeks - Early Invasive Strategies Course & Med Decision Making: Course & Med Decision Making Pertinent Labs and Imaging studies reviewed. (See chart for details) Procedure Note. -Endotracheal intubation- and OG- patient received 100 mg of lidocaine, 100 mg of succinylcholine and then Diprovan titrated for sedation. (Did not receive etomidate because of elevated temp) ET tube placed between the cords with assistance of glide scope at 20 cm. Patient had fogging tube and CO2 change. Tube secured with commercial ET snider. and tube had advanced 2 cm, but later retracted two CM after viewing chest x-ray. OG placed with return of gastric contents and position verified by auscultation and chest x-ray. Procedure Note.- Central Line attempt.-Left subclavian prepped with kit and sterile drape with use of sterile gloves facemask gown. Lt. Subclavian attempt with return of blood, but unable to pass wire. Pressure then applied. Left femoral attempted after kit prep and sterile draping. Unable to cannulate vein and pass wire. On reattempt did cannulate left femoral artery. Central line was left in left femoral artery with Biopatch and sutured. The line was left in place to use as artline and blood draws. Op site dressing placed. Critical Care: 60 Min. without procedures No FFP or K-centra available. Reviewed findings with - a physician and he viewed CT. Morbid prognosis. Discussed presentation, testing and tx. plan with Dr. Dobson, and CT reviewed by Neurosurgery- Dr. Cantrell. Impression: 1. Cardiopulmonary Arrest- with return of pulse with CPR ( Paramedics) 2. Large Acute Intraparenchymal Hemorrhage with Vasogenic Edema and Moderate Subdural hematoma 3. Lt. Pulmonay Pneumonia and Pleural Effusion 4. Leukocytosis 12.2 5. Elevated AST 79, ALT 82, Alk Phos. 142 6. Elevated Lactic Acid 6.0 7. INR 2.9 Dragon Disclaimer: Dragon Disclaimer: This electronic medical record was generated, in whole or in part, using a voice recognition dictation system. Departure Departure: Referrals: TIKA SMITH MD (PCP) [place] Disclaimer This chart was dictated in whole or in part using Voice Recognition software in a busy, high-work load, and often noisy Emergency Department environment. It may contain unintended and wholly unrecognized errors or omissions. Dragon Disclaimer This chart was dictated in whole or in part using Voice Recognition software in a busy, high-work load, and often noisy Emergency Department environment. It may contain unintended and wholly unrecognized errors or omissions. CRISTINA HOBBS MD Jul 02, 2021 23:37
--- NOTE | 2021-07-02 23:43 | RAD ---
CT Head W/O Contrast: History: Reason: change in mental status, CARDIAC ARREST / Spl. Instructions: / History: Comparison: none Axial images were obtained without contrast. There is a large left temporal intraparenchymal hemorrhage which continues up into the basal ganglia the patella left frontal lobe and teague radiata that measures 6.4 x 5.2 cm and has surrounding vasog enic edema and causes 1.4 cm right midline shift. There is flattening of the left lateral ventricle a nd there is hemorrhage in the fourth ventricle and there may be intraparenchymal hemorrhage within th e cerebellar lobe anteriorly on the right and there is a small acute subdural hemorrhage on the left that measures up to 6 mm in thickness. There is complete effacement of the perimesencephalic cistern. The robert and white matter appears normal and symmetrical for the patients age. There is no hydrocep halus. Impression: 1. Large acute intraparenchymal hemorrhage on the left with surrounding it vasogenic edema and comple te effacement of the left lateral ventricle and the perimesencephalic cistern and 1 4 cm left to righ t midline shift. 2. Moderate left-sided acute subdural hematoma. End impression CT C-Spine without contrast: Clinical History: Reason: change in mental status, CARDIAC ARREST / Spl. Instructions: / History: Technique: Axial helical images of the cervical spine were obtained without contrast, axial coronal and sagittal reconstruction was performed. Findings: There is no loss of vertebral body stature. There is no prevertebral soft tissue swelling. The vert ebral bodies are well aligned. The C1-C2 relationship is normal. The visualized osseous structures a ppear normal. There is straightening of the normal cervical lordosis which can be positional or can b e secondary to muscle spasm. Evaluation of the central canal is limited without contrast. There is a hematoma above the left clavicle. There is a small left pleural effusion and left apical i nfiltrate. The right jugular vein is distended. Impression: 1. No CT evidence of acute fracture or malalignment of the C-spine. Clinical correlation suggested. 2. Hematoma in the base of the left neck. 3. Left pleural effusion and left apical infiltrate which could be atypical pneumonia or pulmonary co ntusion. 4. Distention of the right jugular vein. End impression PQRS Compliance Statement: One or more of the following individualized dose reduction techniques were utilized for this examinat ion: 1. Automated exposure control 2. Adjustment of the mA and/or kV according to patient size 3. Use of iterative reconstruction technique These results were called to Dr. your physician and verified by read back at 11:34 PM. Electronically signed by: Brian Andrew III, MD (07/02/2021 11:40 PM) [facility]
[2021-07-02] MEDS ORDERED: ACETAMINOPHEN 650 MG SUPP.RECT. PR ONE (23:45)
[2021-07-02] MEDS ORDERED: VANCOMYCIN 1 GM in IV NORMAL SALINE 250ML 250 ML IV ONE (23:45)
[2021-07-02] MEDS ORDERED: PHYTONADIONE 10 MG/ML AMPUL. SQ ONE (23:45)
--- NOTE | 2021-07-02 23:45 | RAD ---
XR CHEST 1V Clinical History: Reason: post intubation, CARDIAC ARREST / Spl. Instructions: / History: Technique: AP view of the chest was obtained at 07/02/2021 10:52 PM. Comparison: None. Findings: The heart is mild to moderately enlarged. There is opacity in the left lung base. There is an endotra cheal tube with its tip directed towards right main bronchus. The pulmonary vessels appear normal. Impression: 1. The endotracheal tube has its tip directed towards right main bronchus and should be withdrawn windy roximately 2 cm. 2. Large left effusion with adjacent infiltrate. End impression These results were called to the ER physician and verified by read back at 11:34 PM. Electronically signed by: Brian Andrew III, MD (07/02/2021 11:42 PM) [facility]
[2021-07-03] MEDS ORDERED: VANCOMYCIN 1 GM VIAL. ONE (00:30)
[2021-07-03] MEDS ORDERED: IV NORMAL SALINE 250ML 250 ML ONE (00:30)
[2021-07-03 00:37] VITALS: BP 182/102
[2021-07-03 01:05] LABS: BGAS PH 7.54 (7.35-7.45)
--- NOTE | 2021-07-03 04:06 | EKG ---
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
== END 2021-07-03 01:00 | disposition short-term general hospital (02) ==
LOC: MERGE 21:41 → ER 21:41
DX: I46.9 Cardiac arrest, cause unspecified (principal); J18.9 Pneumonia, unspecified organism; D72.829 Elevated white blood cell count, unspecified; Z20.822 Contact with and (suspected) exposure to COVID-19
CPT/HCPCS: 31500; 36415; 36600; 70450; 71045; 72125; 80053; 82803; 83605; 84484; 85025; 85610; 85730; 86850; 86900; 86901; 87040; 87426; 92950; 93005; 96365; 96372; 99291; C9803; J0330; J2250; J3370; J3430; J7050; U0003; 94002; J0171